=== PATIENT | male | born 1940 | race Caucasian/White ===

== ENCOUNTER → 2018-08-23 | Outpatient (CLI) | payer OTHER | END | disposition home or self-care (01) | LOC: SHCH 07:52 | PROVIDERS: ATTEND Internal Medicine Cardiovascular Disease | DX: M79.605 Pain in left leg (principal); M79.604 Pain in right leg | CPT/HCPCS: 93922 ==

== ENCOUNTER 2024-05-22 14:53 | Emergency (ER) | payer OTHER ==
[~2024-05-22] VITALS: Ht 172.7 cm; Wt 72.6 kg
[2024-05-22 15:24] LABS: BASOPHILS # (AUTO) 0.05 K/uL (0.00-0.20); BASOPHILS % (AUTO) 0.7 % (0.0-5.0); EOSINOPHILS # (AUTO) 0.57 K/uL (0.00-0.70); EOSINOPHILS % (AUTO) 7.4 % (0.0-8.0); HEMATOCRIT 39.6 % (42-54); IMMATURE GRANULOCYTE ABSOLUTE 0.02 K/uL (0-1); LYMPHOCYTES # (AUTO) 0.5 K/uL (1.0-4.8); LYMPHOCYTES % (AUTO) 6.4 % (21.0-51.0); MEAN CORPUSCULAR HEMOGLOBIN 29.2 pg (27.0-33.0); MEAN CORPUSCULAR HGB CONC 32.3 g/dL (32.0-36.0); MEAN CORPUSCULAR VOLUME 90.2 fL (79-99); MONOCYTES # (AUTO) 0.7 K/uL (0.1-1.0); MONOCYTES % (AUTO) 9.3 % (3.0-13.0); NEUTROPHILS # (AUTO) 5.8 K/uL (1.8-7.7); NEUTROPHILS % (AUTO) 75.9 % (40.0-77.0); PLATELET COUNT (AUTO) 197 K/uL (130-400); RED BLOOD CELL COUNT(AUTO) 4.39 MIL/uL (4.50-6.20); WHITE BLOOD COUNT (AUTO) 7.7 K/uL (4.8-10.8)
[2024-05-22] MEDS: acetaMINOPHEN 500 MG TABLET PO ONE (15:41)
[2024-05-22] MEDS: 0.9% NACL 500ML IV.SOLN 500 ML IV ONE (15:42)
[2024-05-22 15:48] LABS: B-TYPE NATRIURETIC PEPTIDE 11 pg/mL (0-100)
[2024-05-22] MEDS: SOLU-MEDROL 125MG VIAL IVP ONE (15:49)
[2024-05-22 15:53] LABS: CREATININE 1.3 mg/dL (0.5-1.3); POTASSIUM 4.4 mmol/L (3.5-5.1)
[2024-05-22] MEDS: IpraTROPium/alBUTERol SULFATE 3 ML SOLUTION IH ONE (15:58)
[2024-05-22 16:05] LABS: INFLUENZA TYPE A Negative For Type A (NEGATIVE); INFLUENZA TYPE B Negative For Type B (NEGATIVE)
[2024-05-22 16:08] LABS: ABG HCO3 23.7 mmol/L (21.0-28.0); ABG OXYGEN SATURATION 92.8 % (95.0-99.0); ABG PCO2 40 mmHg (35-48); ABG PH 7.396 (7.35-7.450); PO2, ARTERIAL BG 65.3 mmHg (83.0-108.0); VENT MODE, BG RA (ROOM AIR)
[2024-05-22 16:09] VITALS: PULSE 81; RESP 24
[2024-05-22 16:17] LABS: COVID19 (SARS ANTIGEN RAPID) PRESUMPTIVE NEGATIVE (NEGATIVE)
[2024-05-22 17:30] VITALS: BP 134/59; PULSE 79; RESP 24; O2SAT 98
[2024-05-22 17:32] VITALS: TEMP 98.4
[2024-05-22] MEDS ORDERED: LEVO750T39 PO (17:47)
[2024-05-22] MEDS ORDERED: PRED20TA3 PO (17:47)
== END 2024-05-22 18:12 | disposition home or self-care (01) ==
LOC: EDH 14:53
DX: J44.1 Chronic obstructive pulmonary disease with (acute) exacerbation (principal); E11.9 Type 2 diabetes mellitus without complications; J43.9 Emphysema, unspecified; J96.21 Acute and chronic respiratory failure with hypoxia; F17.200 Nicotine dependence, unspecified, uncomplicated; Z20.822 Contact with and (suspected) exposure to COVID-19
CPT/HCPCS: 99285; 96374; 71045; 87426; 82550; 84484; 80048; 82803; 83880; 85025; 87040; 87804 ×2; 83605; 36415; 93005; 36600; 94640; J2919

== ENCOUNTER 2025-10-01 13:13 | Emergency (ER) | payer OTHER ==
[~2025-10-01] VITALS: Ht 172.7 cm; Wt 60.8 kg
[~2025-10-01 13:13] MED LIST: LEVO750T90 PO; PRED20TA3 PO
--- NOTE | 2025-10-01 13:28 | ERN ---
General Chief Complaint: Shortness of Breath Stated Complaint: SOB Time Seen by MD: 13:18 Source: patient, family History of Present Illness Initial Comments 84-year-old male came in for shortness breath. Timing/Duration: 24 hours Severity: mild Allergies: Coded Allergies: No Known Drug Allergies (Unverified Allergy, Unknown, 03/22/19) Home Meds Active Scripts Levofloxacin (Levofloxacin) 750 Mg Tablet, 750 MG PO DAILY for 7 Days, #7 TAB Prov:EVARISTO RODRIGUES MD 05/22/24 Prednisone (Prednisone) 20 Mg Tablet, 1 TAB PO AD for 6 Days, #14 TAB 0 Refills TAKE 1 TAB BY MOUTH THREE TIMES PER DAY X3 DAYS, THEN TAKE 1 TAB BY MOUTH TWICE A DAY X2 DAYS, THEN TAKE 1 TAB BY MOUTH ONCE A DAY X1 DAY. Prov:EVARISTO RODRIGUES MD 05/22/24 Past Medical History Past Medical History: Anxiety, COPD, High Cholesterol, Hypertension Past Surgical History: None Social History Social History: Smokers ROS Dictation Shortness of breath Respiratory: (+) short of breath Physical Exam General Appearance: (+) no apparent distress Orientation: (+) alert, (+) oriented x 3 Neck: (+) normal inspection, (+) supple Respiratory: (+) chest non-tender, (+) lungs clear Heart: (+) regular, (+) no gallop Results Laboratory and Microbiology Lab and Micro Result Laboratory Tests Test 10/01/25 13:43 White Blood Count 8.3 K/uL (4.8-10.8) Red Blood Count 4.50 MIL/uL (4.50-6.20) Hemoglobin 13.0 g/dL (14.0-18.0) L Hematocrit 40.7 % (42-54) L Mean Corpuscular Volume 90.4 fL (79-99) Mean Corpuscular Hemoglobin 28.9 pg (27.0-33.0) Mean Corpuscular Hemoglobin Concent 31.9 g/dL (32.0-36.0) L Red Cell Distribution Width 13.6 % (11.0-15.5) Platelet Count 270 K/uL (130-400) Mean Platelet Volume 9.7 fL (7.5-10.5) Nucleated Red Blood Cells 0.0 % (0.0-0.19) Sodium Level 141 mmol/L (136-145) Potassium Level 4.7 mmol/L (3.5-5.1) Chloride Level 106 mmol/L (101-111) Carbon Dioxide Level 32 mmol/L (21-32) Blood Urea Nitrogen 18 mg/dL (7-18) Creatinine 1.1 mg/dL (0.5-1.3) Glomerular Filtration Rate Calc 67 mL/min (>90) Random Glucose 95 mg/dL (70-105) Total Calcium 8.9 mg/dL (8.5-10.1) Troponin I High Sensitivity 22 ng/L (4-75) MDM MDM: Differential diagnosis: Rationale: Tests considered and ordered secondary to shared decision making include: Previous outside records reviewed: Old ER visits. Risk of complication and/or morbidity or mortality of patient management: None Medications-Per medication reconciliation Need for hospitalization: Patient does not meet criteria for hospitalization. Need for emergency major/minor surgery: No There are no social concerns with this patient. Prescription drug management Prescriptions will include symptomatic care Patient's prior external medical records from other ER visits were reviewed by me as indicated. Prior testing and results from previous visits were reviewed. Prior tests were taken into account with medical decision making and resource utilization, independent historian/historians were used to obtain complete medical history. I independently interpreted the test that were performed, results were reviewed by me and considered findings on radiology if ordered. Medical management and examination interpretation discussions were had by me with other qualified healthcare professionals as indicated for the patient's care. ED Course Orders Procedure Category Date Status Time Cbc Without LAB 10/01/25 Complete Differential 13:26 Basic Metabolic Panel LAB 10/01/25 Complete 13:26 Chest 1vw RAD 10/01/25 Resulted 13:26 Troponin I High LAB 10/01/25 Complete Sensitivity 13:26 12 Lead Ekg Tracing- EKG 10/01/25 Logged Technical 13:26 Ipratropium/Albuterol PHA 10/01/25 Complete Neb (Duoneb) 14:30 Methylprednisolone PHA 10/01/25 Complete Succ 125mg (Solu-Medr 14:30 Current Medications Medications (Trade) Dose Ordered Sig/Veena Route PRN Reason Start Time Stop Time Status Last Admin Dose Admin Albuterol (DUOneb) 1 UDVIAL ONCE ONCE IH 10/01/25 14:30 10/01/25 14:31 DC 10/01/25 14:52 Methylprednisolone Sodium Succinate (Solu-medROL 125MG) 125 mg ONCE ONCE IM 10/01/25 14:30 10/01/25 14:31 DC Vital Signs Date Time Temp Pulse Resp B/P (MAP) Pulse Ox O2 Delivery O2 Flow Rate FiO2 10/01/25 14:50 74 20 10/01/25 13:14 97.9 80 16 132/89 94 Room Air 0 DX & DISP Disposition: Discharge Departure Impression: Primary Impression: COPD with acute exacerbation Condition: Stable Referrals: ALEJANDRA CAMEJO MD (PCP) JAE LOPEZ MD Oct 01, 2025 13:28 NICHO BENNETT MD Oct 01, 2025 15:30
[2025-10-01 13:49] LABS: NUCLEATED RED BLOOD CELLS 0.0 % (0.0-0.19); PLATELET COUNT (AUTO) 270.0 K/uL (130-400); RED BLOOD CELL COUNT(AUTO) 4.5 MIL/uL (4.50-6.20); RED CELL DISTRIBUTION WIDTH 13.6 % (11.0-15.5); WHITE BLOOD COUNT (AUTO) 8.3 K/uL (4.8-10.8)
[2025-10-01 14:03] LABS: CREATININE 1.1 mg/dL (0.5-1.3); GLOMERULAR FILTR. RATE CALC 67.0 mL/min (>90); GLUCOSE,RANDOM 95.0 mg/dL (70-105); SODIUM SERUM 141.0 mmol/L (136-145); UREA NITROGEN, BLOOD 18.0 mg/dL (7-18)
--- NOTE | 2025-10-01 14:37 | HMCIMG ---
EXAM: CR Chest, 2 View. CLINICAL HISTORY: SOB COMPARISON: CR - CHEST 1VW - 05/22/24 15:39 EDT FINDINGS: LUNGS: There is no mass, infiltrate, or acute pulmonary abnormality. PLEURAL SPACES: No pleural effusion or pneumothorax. MEDIASTINUM: The cardiomediastinal silhouette is within normal limits. BONES: No aggressive appearing osseous lesion seen. IMPRESSION: No acute cardiopulmonary pathology is evident. /[place]
[2025-10-01 14:50] VITALS: PULSE 74; RESP 20
[2025-10-01 17:12] VITALS: BP 143/90; PULSE 76; RESP 19; TEMP 98.3; O2SAT 95
--- NOTE | 2025-10-03 11:11 | EKG ---
[facility] Test Date: 2025-10-01 Test Time: 14:09:22 Pat Name: NELI ESCALERA Department: ED Room: Gender: Merchandise Clerk: [birth year] : 1940 Requested By: JAE LOPEZ Order Number: [id number] Reading MD: Dennise Garcia Measurements Intervals [place] Rate: 67 P: 93 KS: 172 QRS: 84 QRSD: 99 T: 81 QT: 395 QTc: 418 Interpretive Statements Sinus rhythm Nonspecific T abnrm, anterolateral leads Compared to ECG 05/22/2024 14:59:21 Sinus tachycardia no longer present Right-axis deviation no longer present Myocardial infarct finding no longer present Electronically Signed On 10-06-2025 08:50:11 MACHINE CLEANER by Dennise Garcia Please click the below link to view image of tracing.
== END 2025-10-01 17:13 | disposition home or self-care (01) ==
LOC: EDH 13:13
DX: J44.1 Chronic obstructive pulmonary disease with (acute) exacerbation (principal); I10 Essential (primary) hypertension; E78.00 Pure hypercholesterolemia, unspecified; F17.200 Nicotine dependence, unspecified, uncomplicated
CPT/HCPCS: 99285; 71045; 84484; 80048; 85027; 36415; 96372; 93005; 94640; J2919